=== PATIENT | female | born 1970 | race Caucasian/White ===

== ENCOUNTER 2017-02-27 08:37 | Day surgery (SDC) | payer MEDICAID ==
[~2017-02-27 08:37] MED LIST: RINGERS SOLUTION,LACTATED 1,000 ML IV PRN
[2017-02-27 09:08] LABS: Hematocrit 36.7 % (37.0-47.0); Hemoglobin 12.3 gm/dL (12.5-16.0); Mean Cell Volume 83.6 fl (78-100); Mean Corpuscular Hgb Conc 33.5 g/dl (32-36); Neutrophil # 2.7 K/mm3 (1.3-6.0); Neutrophil % 55.9 % (42-75.0); Platelet Count 179 K/mm3 (150-450); Red Blood Count 4.39 M/mm3 (4.2-5.4); Red Cell Distribution Width 12.9 % (11.5-14.0); White Blood Count 4.8 K/mm3 (4.0-10.5)
[2017-02-27] MEDS ORDERED: RINGERS SOLUTION,LACTATED 1,000 ML IV ONE (09:20)
[2017-02-27] MEDS ORDERED: IBUPROFEN 600 MG TABLET PO PRN (09:54)
[2017-02-27] MEDS ORDERED: oxyCODONE HCL/ACETAMINOPHEN 1 TAB TABLET PO PRN (09:54)
--- NOTE | 2017-02-27 10:05 | OR ---
Operative Report - Dictated Report Narrative: Operative Report 02/27/2017 Hysteroscopy Dilatation and Curettage Preoperative Diagnosis: Simple Endometrial Hyperplasia without Atypia Postoperative Diagnosis: Simple Endometrial Hyperplasia without Atypia Procedure: Hysteroscopy Dilatation and Curettage Surgeon: Terra Navarro M.D. Anesthesia: Ebenezer Matamoros CRNA, IV sedation Findings: Uterine sound was 10.5 cm. There was no evidence of submucosal fibroid or endometrial polyp. Fluids: 450 ml EBL: Minimal Drains: None Complications: None Condition: Stable Pathology: Endometrial curettings Procedure: The patient was taken to the operating room with IV fluids running. She was placed in the dorsal lithotomy position after anesthesia was induced. A bivalve speculum was placed in the vagina. The anterior lip of the cervix was grasped with a single-tooth tenaculum. Uterine sound was passed into the endometrial cavity with ease. Uterine sound was 10.5 cm. The cervix was dilated with Serjio dilators. The hysteroscope was introduced into the endometrial cavity. The cavity was distended with normal saline. [place] were visualized bilaterally. There is no evidence of submucosal fibroid or endometrial polyp. The hysteroscope was removed. The cavity was sharply curetted without difficulty. The hysteroscope was once again introduced into the cavity. The cavity was completely curetted. The hysteroscope was removed. The single-tooth tenaculum was removed. Sites were hemostatic. The speculum was removed from the vagina. Sponge counts were correct 2. The patient tolerated the procedure well.
[2017-02-27 10:54] VITALS: BP 120/84
== END 2017-02-27 08:38 | disposition home or self-care (01) ==
LOC: AMB 08:37
PROVIDERS: ATTEND Obstetrics & Gynecology
PROC: 0UDB8ZX Extraction of Endometrium, Via Natural or Artificial Opening Endoscopic, Diagnostic (ICD-10-PCS; principal; 2017-02-27 09:30)
DX: N85.01 Benign endometrial hyperplasia (principal); Z68.42 Body mass index [BMI] 45.0-49.9, adult